=== PATIENT | female | born 1950 | race Caucasian/White ===

== ENCOUNTER → 2021-01-20 | Outpatient (CLI) | payer MEDICARE, OTHER ==
[~2021-01-20] MED LIST: COMBIGAN EYE DRO5 ML EYELF; LOPRESSOR100 MG PO; LOVAZA1 GM PO; MULTI-VITAMIN1 EACH PO; ROXICODONE TAB 55 MG PO; ZOCOR20 MG PO
== END ==
LOC: CT 14:55
DX: R91.1 Solitary pulmonary nodule (principal)
CPT/HCPCS: 71260; Q9963

== ENCOUNTER → 2022-01-23 | Outpatient (CLI) | payer MEDICARE, OTHER | LOC: CT 07:18 | DX: R91.1 Solitary pulmonary nodule (principal) | CPT/HCPCS: 71270; Q9967 ==

== ENCOUNTER → 2022-02-16 | Day surgery (SDC) | payer MEDICARE, OTHER ==
[~2022-02-16] MED LIST changes: +COMBIGAN EYE DRO5 ML EYERT; +ERYTHROMYCIN OP1 GM OP; +HYDROCODON-ACE1 EAC2 PO; +HYDROCODON-ACE1 EAC4 PO; +LATANOPROST2.5 ML EYERT; +MIRALAX 119 GR119 GM PO; +MOXIFLOXACIN3 M1 EYERT; +PREDNISONE EYERT; +REFRESH LACRI-3.5 GM EYERT; +SIMVASTATIN20 MG PO; +VAZALORE81 MG PO; +ZOFRAN 4 MG TAB4 MG PO; +tylenol PO
[2022-02-16 08:57] LABS: HEMOGLOBIN 12.4 gm/dl (12.3-15.3); RED BLOOD COUNT 4.12 M/UL (4.00-5.10); WHITE BLOOD COUNT 4.3 K/UL (4.5-11.0)
[2022-02-16 09:14] LABS: BUN/CREATININE RATIO 26 (0-10)
== END | disposition home or self-care (01) ==
LOC: OR 08:24
PROVIDERS: Orthopaedic Surgery
DX: S52.021A Displaced fracture of olecranon process without intraarticular extension of right ulna, initial encounter for closed fracture (principal); S52.041A Displaced fracture of coronoid process of right ulna, initial encounter for closed fracture; S52.121A Displaced fracture of head of right radius, initial encounter for closed fracture; I10 Essential (primary) hypertension; E78.5 Hyperlipidemia, unspecified; R94.31 Abnormal electrocardiogram [ECG] [EKG]; Z98.1 Arthrodesis status; Z20.822 Contact with and (suspected) exposure to COVID-19; Z88.0 Allergy status to penicillin; W19.XXXA Unspecified fall, initial encounter
CPT/HCPCS: 73080; 76000; 80048; 85027; 93005; C1713; J0690; J1100; J2250; J2405; J2704; J2710; J2795; J3010; J7120

== ENCOUNTER → 2022-03-09 | Day surgery (SDC) | payer MEDICARE, OTHER | END | disposition home or self-care (01) | LOC: OR 06:29 | DX: T84.112A Breakdown (mechanical) of internal fixation device of bone of right forearm, initial encounter (principal); S52.021A Displaced fracture of olecranon process without intraarticular extension of right ulna, initial encounter for closed fracture; I10 Essential (primary) hypertension; E78.5 Hyperlipidemia, unspecified; Z88.0 Allergy status to penicillin; Z79.82 Long term (current) use of aspirin; Z79.899 Other long term (current) drug therapy; Z20.822 Contact with and (suspected) exposure to COVID-19 | CPT/HCPCS: 73080; 76000; C1713; C1874; J0690; J1100; J2001; J2250; J2405; J2704; J2710; J2795; J3010; J7120 ==